=== PATIENT | female | born 1945 | race Caucasian/White ===

== ENCOUNTER 2022-08-02 06:44 | Day surgery (SDC) | payer MEDICARE ==
[2022-07-31 10:31] LABS: BASOPHILS % (AUTO) 0.3 % (0.0-5.0); EOSINOPHILS % (AUTO) 0.5 % (0.0-8.0); HEMATOCRIT 37.8 % (36-48); LYMPHOCYTES % (AUTO) 21.4 % (21.0-51.0); MEAN CORPUSCULAR HEMOGLOBIN 31.2 pg (27.0-33.0); MEAN CORPUSCULAR HGB CONC 32.5 g/dL (32.0-36.0); MEAN CORPUSCULAR VOLUME 95.9 fL (79-99); MONOCYTES % (AUTO) 8.1 % (3.0-13.0); PLATELET COUNT (AUTO) 324 K/uL (130-400); RED BLOOD CELL COUNT(AUTO) 3.94 MIL/uL (4.00-5.50); RED CELL DISTRIBUTION WIDTH 13.2 % (11.0-15.5); WHITE BLOOD COUNT (AUTO) 10.7 K/uL (4.8-10.8)
[2022-07-31 10:38] LABS: POTASSIUM 3.7 mmol/L (3.5-5.1)
[2022-07-31 10:55] LABS: INR 0.97 (0.85-1.15); PROTHROMBIN TIME 10.6 SEC (9.6-11.6)
[2022-07-31 10:56] LABS: PARTIAL THROMBOPLASTIN TIME 27.8 SEC (26.3-35.5)
[2022-08-01 10:15] VITALS: BP 125/84
[~2022-08-02] VITALS: Ht 158.8 cm; Wt 71.9 kg
[~2022-08-02 06:44] MED LIST: AMLO-257 PO; APIX5TAB PO; FERR-82 PO; LEVO50CA4 PO; METH1TAB30 PO; METO-391 PO; PREN-64 PO; VIT1CAPS47 PO; ZOLP10TA2 PO
[2022-08-02 06:53] VITALS: BP 119/72
[2022-08-02] MEDS ORDERED: 0.9%NACL 1000ML 1,000 ML IV ONE (07:16)
[2022-08-02] MEDS ORDERED: IODIXANOL 320 MG/ML 100 ML VIAL ONE (08:02)
[2022-08-02] MEDS ORDERED: HEPARIN 1,000 UNIT VIAL ONE (08:02)
[2022-08-02] MEDS ORDERED: LIDOCAINE HCL 1% 20 ML VIAL ONE (08:02)
[2022-08-02] MEDS ORDERED: MIDAZOLAM HCL 1 MG/ML 2ML VIAL ONE (08:03)
[2022-08-02] MEDS ORDERED: FENTANYL CITRATE PF 50 MCG/1 ML 2ML VIAL ONE (08:03)
[2022-08-02 09:25] VITALS: BP 131/71
[2022-08-02 09:30] VITALS: BP 119/77
[2022-08-02 09:45] VITALS: BP 123/78
[2022-08-02 10:00] VITALS: BP 134/74
== END 2022-08-02 10:05 | disposition home or self-care (01) ==
LOC: DAH 06:44
PROVIDERS: ATTEND Internal Medicine Cardiovascular Disease
DX: Z01.818 Encounter for other preprocedural examination (principal); I82.401 Acute embolism and thrombosis of unspecified deep veins of right lower extremity; I10 Essential (primary) hypertension; E03.9 Hypothyroidism, unspecified; I49.1 Atrial premature depolarization; Z82.49 Family history of ischemic heart disease and other diseases of the circulatory system; Z90.49 Acquired absence of other specified parts of digestive tract; Z90.710 Acquired absence of both cervix and uterus; Z98.890 Other specified postprocedural states; Z87.891 Personal history of nicotine dependence; Z72.89 Other problems related to lifestyle
CPT/HCPCS: 80048; 85025; 85610; 85730; 36415; 93005; 37191; C1769; C1894; C1880; J7030; J1644; Q9967; A4215; A4222; A4221; A4663; A4216; A6206; A4606; A4223 ×3; J2250; J3010

== ENCOUNTER 2022-08-08 05:45 | Observation (INO) | payer MEDICARE ==
[2022-08-06 11:15] LABS: BASOPHILS % (AUTO) 0.4 % (0.0-5.0); EOSINOPHILS % (AUTO) 0.6 % (0.0-8.0); HEMATOCRIT 38.1 % (36-48); LYMPHOCYTES % (AUTO) 22.6 % (21.0-51.0); MEAN CORPUSCULAR HEMOGLOBIN 31.5 pg (27.0-33.0); MEAN CORPUSCULAR HGB CONC 33.3 g/dL (32.0-36.0); MEAN CORPUSCULAR VOLUME 94.5 fL (79-99); MONOCYTES % (AUTO) 7.2 % (3.0-13.0); NEUTROPHILS % (AUTO) 68.6 % (40.0-77.0); PLATELET COUNT (AUTO) 298 K/uL (130-400); RED BLOOD CELL COUNT(AUTO) 4.03 MIL/uL (4.00-5.50); WHITE BLOOD COUNT (AUTO) 10.5 K/uL (4.8-10.8)
[2022-08-06 11:19] LABS: CREATININE 0.9 mg/dL (0.5-1.5); POTASSIUM 4.3 mmol/L (3.5-5.1)
[2022-08-07 10:51] VITALS: BP 140/79
[2022-08-08] VITALS (24 sets, daily range): BP systolic 104–136; BP diastolic 57–79
[~2022-08-08] VITALS: Ht 157.5 cm; Wt 71.8 kg
[~2022-08-08 05:45] MED LIST changes: +BUPIVACAINE/EPI/PF 0.25% 10ML VIAL IJ ONE; +CEFAZOLIN SODIUM 1 GM VIAL ONE; +COLON HEALTH PO; +FEXO-235 PO; +PROPOFOL 1000 MG/100 ML 100 ML IV ONE; +THROMBIN-JMI 20000 UNIT KIT TP ONE
[2022-08-08] MEDS ORDERED: LACTATED RINGERS 1000ML 1,000 ML IV ONE (06:19)
[2022-08-08] MEDS: CEFAZOLIN SODIUM 2 GM VIAL IVPB SCH ×3 (06:48→14:51)
[2022-08-08] MEDS ORDERED: PROPOFOL 10 MG/ML 20ML VIAL IV ONE (06:58)
[2022-08-08] MEDS ORDERED: ONDANSETRON 4MG INJ ONE ×2 (06:58→10:42)
[2022-08-08] MEDS ORDERED: ROCURONIUM 10MG/1ML SYR 10 MG/ML ML ONE (06:58)
[2022-08-08] MEDS ORDERED: MIDAZOLAM HCL 1 MG/ML 2ML VIAL ONE (06:58)
[2022-08-08] MEDS ORDERED: FENTANYL CITRATE PF 50 MCG/1 ML 2ML VIAL ONE ×2 (07:00→08:43)
[2022-08-08] MEDS ORDERED: PHENYLEPHRINE HCL 10 MG/ML 1ML VIAL IV ONE (08:01)
[2022-08-08] MEDS ORDERED: DEXAMETHASONE SOD PHOSPHATE 10MG/ML 1ML VIAL ONE (08:11)
[2022-08-08] MEDS ORDERED: GLYCOPYRROLATE 1 MG/5 ML SYRINGE ONE (09:44)
[2022-08-08] MEDS ORDERED: NEOSTIGMINE 5MG/5ML SYR IV ONE (09:44)
[2022-08-08] MEDS ORDERED: 0.9%NACL 10ML VIAL IVP PRN (10:00)
[2022-08-08] MEDS ORDERED: ZOLPIDEM TARTRATE 5 MG TAB PO PRN (10:00)
[2022-08-08] MEDS ORDERED: [UNRECOGNIZED DRUG - REMARK] PO PRN (10:00)
[2022-08-08] MEDS ORDERED: HYDROCODONE/ACETAMINOPHEN 5/325 MG TAB PO PRN (10:00)
[2022-08-08] MEDS ORDERED: MORPHINE 2 MG SYG IVP PRN (10:00)
[2022-08-08] MEDS ORDERED: PROMETHAZINE HCL 25 MG/ML 1ML AMPULE IM PRN (10:00)
[2022-08-08] MEDS ORDERED: CEFAZOLIN SODIUM 1 GM VIAL IVP SCH ×2 (10:00→16:00)
[2022-08-08] MEDS ORDERED: MORPHINE 4 MG SYG ONE (10:43)
[2022-08-08] MEDS: DEXAMETHASONE SOD PHOSPHATE 4 MG/ML 1ML VIAL IVP SCH ×2 (12:24→19:32)
[2022-08-08] MEDS: LACTATED RINGERS 1000ML 1,000 ML IV SCH ×2 (12:25→22:52)
[2022-08-08] MEDS: METOPROLOL TARTRATE 25 MG TAB PO SCH ×2 (15:25→19:32)
[2022-08-08] MEDS ORDERED: CEFAZOLIN SODIUM 2 GM VIAL IVPB ONE (16:00)
[2022-08-09] VITALS: BP 106/65
[2022-08-09 04:00] VITALS: BP 100/50
[2022-08-09] MEDS: DEXAMETHASONE SOD PHOSPHATE 4 MG/ML 1ML VIAL IVP SCH ×2 (04:07→10:30)
[2022-08-09] MEDS ORDERED: LEVOTHYROXINE 50 MCG TABLET PO SCH (06:30)
[2022-08-09 08:17] VITALS: BP 120/72
[2022-08-09] MEDS: METOPROLOL TARTRATE 25 MG TAB PO SCH (08:44)
[2022-08-09] MEDS ORDERED: COLON HEALTH PO SCH (09:00)
[2022-08-09] MEDS ORDERED: AMLODIPINE 5 MG TAB PO SCH (09:00)
[2022-08-09] MEDS ORDERED: FERROUS SULFATE 325 MG TABLET.DR PO SCH (09:00)
[2022-08-09] MEDS ORDERED: METOPROLOL SUCCINATE 50 MG TAB.SR.24H PO SCH (09:00)
[2022-08-09] MEDS ORDERED: METHENAMINE HIPPURATE 1 GM PO SCH (09:00)
[2022-08-09] MEDS ORDERED: FE FUMARATE/FA/MV, MIN COMB#15 1 TAB PO SCH (09:00)
[2022-08-09] MEDS ORDERED: [UNRECOGNIZED DRUG - OTHER] PO SCH (09:00)
[2022-08-09] MEDS ORDERED: APIXABAN 5 MG TABLET ONE (10:39)
[2022-08-09] MEDS ORDERED: APIXABAN 5 MG TABLET PO SCH (21:00)
== END 2022-08-09 13:00 | disposition home or self-care (01) ==
LOC: DAH 05:45 → DAHIP 05:46 → DAH 05:46 → 4BH 10:35
PROVIDERS: ADMIT Neurological Surgery; ATTEND Neurological Surgery
DX: M48.02 Spinal stenosis, cervical region (principal); Z20.822 Contact with and (suspected) exposure to COVID-19; M54.12 Radiculopathy, cervical region; I48.0 Paroxysmal atrial fibrillation; I25.10 Atherosclerotic heart disease of native coronary artery without angina pectoris; I10 Essential (primary) hypertension; I48.20 Chronic atrial fibrillation, unspecified; I82.621 Acute embolism and thrombosis of deep veins of right upper extremity; E03.9 Hypothyroidism, unspecified; D50.9 Iron deficiency anemia, unspecified; Z79.01 Long term (current) use of anticoagulants; Z90.710 Acquired absence of both cervix and uterus; Z95.828 Presence of other vascular implants and grafts; Z98.1 Arthrodesis status; Z79.899 Other long term (current) drug therapy
CPT/HCPCS: 80048; 85025; 87426; 36415; 22551; 22845; 20930; 96374; 96376 ×2; 96375; 72020; A6260; J1100 ×5; G0378 ×27; A4663; J7030; A4344; A4649 ×4; J7120 ×2; J3010 ×2; J0690 ×3; J3490 ×3; J2710; J2250; J2704 ×2; J2405 ×2; J2270; J2370; C1713 ×2; A4215; A4223; A4222; A4221; A4600; A4510

== ENCOUNTER → 2022-09-03 | Outpatient (CLI) | payer MEDICARE ==
[~2022-09-03] MED LIST changes: -BUPIVACAINE/EPI/PF 0.25% 10ML VIAL IJ ONE; -CEFAZOLIN SODIUM 1 GM VIAL ONE; -PROPOFOL 1000 MG/100 ML 100 ML IV ONE; -THROMBIN-JMI 20000 UNIT KIT TP ONE
== END | disposition home or self-care (01) ==
LOC: RAH 12:17
PROVIDERS: ATTEND Neurological Surgery
DX: M47.26 Other spondylosis with radiculopathy, lumbar region (principal)
CPT/HCPCS: 72148

== ENCOUNTER → 2022-09-10 | Outpatient (CLI) | payer MEDICARE | END | disposition home or self-care (01) | LOC: RAH 11:16 | PROVIDERS: ATTEND Neurological Surgery | DX: M47.812 Spondylosis without myelopathy or radiculopathy, cervical region (principal); Z98.1 Arthrodesis status | CPT/HCPCS: 72040 ==